=== PATIENT | female | born 1955 | race Caucasian/White ===

== ENCOUNTER 2017-02-08 11:56 | Emergency (ER) | payer MEDICAID ==
[~2017-02-08] VITALS: Ht 167.6 cm; Wt 72.2 kg
[2017-02-08 12:39] VITALS: BP 176/84
--- NOTE | 2017-02-08 15:45 | NUR ---
NO ANWER IN ER LOBBY
--- NOTE | 2017-02-08 16:15 | NUR ---
NO ANSWER IN ER LOBBY
== END 2017-02-08 16:15 | disposition left against medical advice (07) ==
LOC: MED 11:56
DX: K08.89 Other specified disorders of teeth and supporting structures (principal); Z53.21 Procedure and treatment not carried out due to patient leaving prior to being seen by health care provider